=== PATIENT | female | born 1960 | race Caucasian/White ===

== ENCOUNTER 2021-07-13 07:41 | Day surgery (SDC) | payer MEDICAID ==
[~2021-07-13] VITALS: Ht 165.1 cm; Wt 54.5 kg
[2021-07-13 07:50] VITALS: BP 127/68
[2021-07-13] MEDS ORDERED: ASCO500C17 PO (07:56)
[2021-07-13] MEDS ORDERED: MIDAZolam 1 MG/ML 5ML VIAL ONE (07:56)
[2021-07-13] MEDS ORDERED: fentaNYL/PF 50MCG/1 ML 2ML syringe ONE (07:56)
[2021-07-13] MEDS ORDERED: [UNRECOGNIZED DRUG - OTHER] (07:59)
[2021-07-13] MEDS ORDERED: UBID300C PO (08:00)
[2021-07-13 09:26] VITALS: BP 100/50
[2021-07-13 09:36] VITALS: BP 108/53
[2021-07-13 09:46] VITALS: BP 109/47
[2021-07-13 09:56] VITALS: BP 96/55
== END 2021-07-13 10:10 | disposition home or self-care (01) ==
LOC: GI LAB 07:41
PROVIDERS: ATTEND Internal Medicine Gastroenterology
DX: Z12.11 Encounter for screening for malignant neoplasm of colon (principal); K56.690 Other partial intestinal obstruction; C20 Malignant neoplasm of rectum; D50.0 Iron deficiency anemia secondary to blood loss (chronic); Z80.0 Family history of malignant neoplasm of digestive organs
CPT/HCPCS: 45380; 45381; 99152; 99153; J2250; J3010; J7040; Z7512; 45335; A4620